=== PATIENT | female | born 1985 ===

== ENCOUNTER 2017-01-18 21:00 | Emergency (ER) | payer MEDICAID ==
[2017-01-18] MEDS ORDERED: Lactated Ringer's 1,000 ML IV ONE (21:15)
[2017-01-18 21:46] VITALS: BMI 27.6
[2017-01-18 22:07] LABS: RBC URINE 5 /hpf (0-3); URINE BACTERIA FEW (<OCC); URINE BILIRUBIN NEGATIVE (NEGATIVE); URINE BLOOD 1+ (NEGATIVE); URINE COLOR Yellow (YELLOW); URINE GLUCOSE (UA) 3+ mg/dL (Normal); URINE KETONE NEGATIVE (NEGATIVE); URINE LEUKOCYTE ESTERASE 1+ Leu/uL (Negative); URINE PROTEIN 1+ mg/dL (NEGATIVE); URINE UROBILINOGEN NORMAL mg/dL (0.2-1.0); WBC URINE 5 /hpf (0-5)
[2017-01-18] MEDS ORDERED: Betamethasone Soluspan 30 mg/5mL Inj Susp IM ONE (22:14)
[2017-01-18] MEDS ORDERED: Lactated Ringer's 1,000 ML IV SCH (22:30)
[2017-01-18] MEDS ORDERED: ceFAZolin IV 1 gm in Dextrose 1 GM/50 ML BAG IVPB ONE ×2 (23:00→23:18)
--- NOTE | 2017-01-19 01:40 | OBHP ---
Datetime: 01/18/2017 21:48 IP Adm Impression: , intrauterine ; Intact Membranes IP Adm Impression Other: Incompetent cervix; prev delivery; Cerclage in situ (Annotations: D sondra stored by CPN on behalf of user) IP Admit Plan: Observation/Evaluation; Discharge home Admit Comment, IP Provider: 31 y.o. , LMP 05/14/16, KIMBERLY 02/17/17, EGA 35w 5d c/o vaginal blee idng 2000 hours - was reclining; got up to urinate - noted after wiping. Placed a paintiliner - fille d up. Decided to come for evaluation. 2nd pantiliner with lesser bleeding. (+) AFM; (+) B-H ctx over weeks; stronger since 1800 hours, pain scale 4/10. care: Dr. Gonzalez; transferred to Dr. Refugio berrios - today was her second visit. H/O incompetent cervix with prior del x 1, and cerclage x 2. In this , cerclage placed at 14 weeks. During today's visit, had cervical exam. No other issues P Ob: x 2, both females; had cerclage in both; both delivered at [facility], Dr. Gonzalez. 2007, 37 weeks, 5lb 15 oz; 2009, 36 weeks, 6lb 5oz. 2006, Spont Ab at 23 weeks, twins, with D_C. 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 Denies STIS or abnormal Pap PMH: H/O asthma since childhood. Last attack 1 month ago. Never intubated or on steroids. PSH: D_C NKDA Meds: PNV, Folic acid - QD Soc Hx: denies tobacco, illicit drug or EtOH use. With FOB x 12 years. 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 Fam Hx. Mother alive - late 50s - HTN, DM, cardiac disease. Father - drug overdose. No kn own fam h/o cancer P.E.: as above. WD in NAD. Awake, alert, oriented to time, person and place. Pleasant and cooperat sagar Assessment: 31 yo P1112, 35w 5d, h/o incompetent cervix with cerclage in situ. Vaginal bleeding an d uterine contractions - R/O PTL . Category 1 tracing. Clinically stable. Plan: 1) IVFs 2) U/A 3) Observe 4) Possible cerclage removal 5) Possible celestone Addendum: 2016 hours - D/W Dr. Healy: remove cerclage, administer celestone. Observe for possible progression of pre term labor. Procedure Note 2305 hours After obtaining informed consent for the anticipated procdure, under sterile conditions, sterile s peculum inserted: [place] visualized at 11:00 oclock. Knot grasped with [place] clamp;stitich cut a nd removed in tact. Hemostasis assured with pressure. V.E.: 1/long/-4, medium consistency U/A: leuk esterase 1+ Assessment: P1112, 35w 5d, h/o PTL , cervical incompetence - uterine contractions with vaginal ble eding S/P cerclage removal. Early UTI. Category tracing. Clinically stable. Plan: 1) Ancef 1 gram IVPB x 1 2) Re-examine in 1 hour 3) Continue observation Addendum: 0130 hours Patient reports contractions have decreased in frequency, intensity remains at 5/10. Repeat cervical exam performed 0025 hours and 0120 hours: no cervical change, i.e., 1cm/long/ -4, mid position, medium consistency. FHR 140 bpm: (+) Accels; (-) decels. (+) moderate variability [place]: infrequent Assessment: 31 yo P1112, 35w 6d, incompetent cervix, h/o delivery, h/o cerclage with vagin al bleeidng and now S/P removal of cerclage. Serial cervical exams performed - no cervical change. Pr esumptive early UTI - S/P 1 dose IV antibiotics. Patient encouraged to continue p.o. antibiotics as p rescribed, to drink at least 1/2 body weight of water daily and 1 glass of cranberry juice. Patient t o return approximately 2200 hours 01/19/17 for second shot of celestone. Patient expressed an undersan ding and agrees. No questions offered. Category 1 tracing. Patient is clinically stable. Plan: 1) Discharge home 2) Rx: Keflex 500 mg 1 tab po TID x 7 days 3) Rx: diflucan 150 mg 1 tab po x 1 dose (take after antibiotics) 4) reviewed S/S PTL 5) Keep appointment, Sat01/23/17 - as per and discussed with Dr. Healy Pelvic Type - PN: Adequate Extremities - PN: Normal Abdomen - PN: Normal Back - PN: Normal Breast - PN: Not Done Lungs - PN: Normal Heart - PN: Normal Thyroid - PN: Normal Neurologic - PN: Not Done HEENT - PN: Normal General - PN: Normal FHR - Baseline A Provider: 135 Contraction Comments Provider: 3-4 minutes Comments, ACOG Physical Exam: Abdomen: Soft. Gravid. Non tender Perineum: no blood Spec: dark clot seen; no active bleeding. Hyperemic cervix noted; suture visualized. Nitrazine neg ative. No pooling. [place]: cervix mid to anterior, soft. Suture palpated anteriorly All other systems reviewed and as per HPI Gestation - Est Wks by US: 35w 5d EGA AdmitDate IP: 35.5 Vital Signs Provider: Reviewed IP Chief Complaint: Vaginal bleeding NICHD Variability Prov Fetus A: Moderate 6-25bpm NICHD Accel Fetus A IP Provider: 15X15 FHR Category Provider Fetus A: Category I NICHD Decel Fetus A IP Provider: None Dilatation, Provider: 1 Effacement, Provider: 40 Station, Provider: high Genitourinary Exam: Normal DTRs - PN: Not Done
== END 2017-01-19 01:32 | disposition home or self-care (01) ==
LOC: C.EROB 21:00
DX: O34.33 Maternal care for cervical incompetence, third trimester (principal); Z3A.35 35 weeks gestation of pregnancy
CPT/HCPCS: 81001; 96372; 99283; J0690; J0702; J7120

== ENCOUNTER 2017-01-19 22:28 | Emergency (ER) | payer MEDICAID ==
[2017-01-18 21:46] VITALS: BMI 27.6
[2017-01-19] MEDS ORDERED: Betamethasone Soluspan 30 mg/5mL Inj Susp IM ONE (22:42)
--- NOTE | 2017-01-19 22:58 | OBHP ---
Datetime: 01/19/2017 22:46 Admit Comment, IP Provider: 31 yo P1112, 35w 6d returns for second dose of IM Celestone. S/P cerclag e removal 01/18/17 - vaginal bleeding. h/o incompetent cervix and delivery. (+) AFM. Reports m inimal vaginal pressure and very occasional B-H contractions. See H_P from 01/18/17 Assessment: as above. Category 1 tracing/ NST reactive. Clinically stable. Plan 1) Celesstone 12 mg IM x 1 now 2) Keep appointment, Dr. Healy 01/23/17 4) Reviewed S/S PTL 5) Out of work note given: effective 01/22/17 FHR - Baseline A Provider: 130 Contraction Comments Provider: none Gestation - Est Wks by US: 35w 6d NICHD Variability Prov Fetus A: Moderate 6-25bpm NICHD Accel Fetus A IP Provider: 15X15 FHR Category Provider Fetus A: Category I NICHD Decel Fetus A IP Provider: None Dilatation, Provider: deferred Datetime: 01/18/2017 21:48 EGA AdmitDate IP: 35.5
== END 2017-01-19 23:14 | disposition home or self-care (01) ==
LOC: C.EROB 22:28
DX: O34.33 Maternal care for cervical incompetence, third trimester (principal); Z3A.35 35 weeks gestation of pregnancy
CPT/HCPCS: 99283; J0702

== ENCOUNTER 2017-02-10 19:43 | Inpatient (IN) | payer MEDICAID ==
--- NOTE | 2017-02-10 20:11 | OBADHP ---
Datetime: 02/10/2017 20:06 Admit Comment, IP Provider: at 39weeks came with c/o ctxs stated in the morning q1-4 min,11/05,n o vb, lof,+fm.pt had a cerclage removed 2weks ago. obhx 2 x , 1 sab pmh asthma med pnv all nkda psh cerclage soch den ve 3-80/-2 a/p at 39weeks in labor admit to l7d npo/ivf labs cnt oscar and efm pain management anticipate dR Henry AWARE Pelvic Type - PN: Adequate Extremities - PN: Normal Abdomen - PN: Normal Back - PN: Normal Breast - PN: Normal Lungs - PN: Normal Heart - PN: Normal Thyroid - PN: Normal Neurologic - PN: Normal HEENT - PN: Normal General - PN: Normal FHR - Baseline A Provider: 130 Contraction Comments Provider: q1-4 Comments, ACOG Physical Exam: `1GRAVID,NON TENDER EXT NO EDEMA,NO CALF TEN VE 3-80/-2 IP Hx Assessment: The History has been Reviewed and is Current Vital Signs Provider: Reviewed; Within Normal Limits IP Chief Complaint: Uterine contractions NICHD Variability Prov Fetus A: Moderate 6-25bpm NICHD Accel Fetus A IP Provider: 15X15 FHR Category Provider Fetus A: Category I Dilatation, Provider: 4 Effacement, Provider: 80 Station, Provider: -2 Genitourinary Exam: Normal DTRs - PN: Normal EGA AdmitDate IP: 39.0 IP Adm Impression: Term, intrauterine ; Active labor IP Admit Plan: Admit to unit; Initiate labor protocol Datetime: 01/19/2017 22:46 Gestation - Est Wks by US: 35w 6d NICHD Decel Fetus A IP Provider: None Datetime: 01/18/2017 21:48 IP Adm Impression Other: Incompetent cervix; prev delivery; Cerclage in situ (Annotations: D sondra stored by CPN on behalf of user)
[2017-02-10 20:15] VITALS: BMI 29.6
[2017-02-10] MEDS ORDERED: Nalbuphine 20 mg/ml Inj (1 ml) IVP PRN (20:30)
[2017-02-10] MEDS ORDERED: Lactated Ringer's 1,000 ML IV SCH (20:30)
[2017-02-10 20:42] LABS: BASO # 0.1 K/uL (0.0-0.2); BASO % 0.5 % (0.0-2.0); EOS # 0.1 K/uL (0.0-0.7); EOS % 0.9 % (0.0-4.0); HEMOGLOBIN 11.3 g/dL (11.0-16.0); LYMPH # 2.3 K/uL (1.0-4.3); LYMPH % 21.2 % (20.0-40.0); MEAN CELL VOLUME 87.5 fL (81.0-99.0); MEAN CORPUSCULAR HEMOGLOBIN 29.4 pg (27.0-31.0); MEAN CORPUSCULAR HGB CONC 33.6 g/dL (33.0-37.0); MEAN PLATELET VOLUME 10.7 fL (7.2-11.7); MONO # 0.6 K/uL (0.0-0.8); MONO % 5.7 % (0.0-10.0); NEUT # 7.8 K/uL (1.8-7.0); NEUT % 71.7 % (50.0-75.0); RBC 3.86 Mil/uL (3.80-5.20); RED CELL DISTRIBUTION WIDTH 13.8 % (11.5-14.5); WHITE BLOOD COUNT 10.8 K/uL (4.8-10.8)
[2017-02-10 20:49] LABS: SQUAMOUS EPITHIAL 18 /hpf (0-5); URINE BACTERIA MANY (<OCC); URINE BILIRUBIN NEGATIVE (NEGATIVE); URINE BLOOD NEGATIVE (NEGATIVE); URINE CLARITY Hazy (Clear); URINE COLOR Yellow (YELLOW); URINE GLUCOSE (UA) 2+ mg/dL (Normal); URINE LEUKOCYTE ESTERASE 2+ Leu/uL (Negative); URINE NITRATE NEGATIVE (NEGATIVE); URINE PROTEIN 1+ mg/dL (NEGATIVE); URINE UROBILINOGEN NORMAL mg/dL (0.2-1.0)
[2017-02-10 20:54] LABS: ALBUMIN 3.1 g/dL (3.5-5.0)
[2017-02-10 20:57] LABS: AST/SGOT 29 U/L (14-36); GFR AFRICAN-AMERICAN > 60; GFR NON-AFRICAN AMERICAN > 60
[2017-02-10 20:58] LABS: ALB/GLOB RATIO 0.9 (1.0-2.1); ALT/SGPT 22 U/L (9-52); BLOOD UREA NITROGEN 8 mg/dL (7-17)
[2017-02-10 20:59] LABS: CALCIUM 8.9 mg/dl (8.6-10.4)
[2017-02-11] MEDS ORDERED: Oxytocin 30 UNIT 30 UNITS/500 ML BAG IV PRN (05:47)
[2017-02-11] MEDS ORDERED: Oxytocin 30 UNIT 30 UNITS/500 ML BAG IV ONE (06:16)
[2017-02-11] MEDS ORDERED: Lidocaine 2% Inj (20ml) ONE (06:52)
[2017-02-11] MEDS ORDERED: Bupivacaine 0.125%/FentaNYL 200 ML EPI ONE (08:54)
--- NOTE | 2017-02-11 08:57 | OBPN ---
Datetime: 02/11/2017 08:53 Membranes, Provider: Intact Contraction Comments Provider: 1-2 FHR - Baseline A Provider: 130 Gestation - Est Wks by US: 39w 1d Presentation-Admit: Vertex IP Progress Note Comment: Patient received in LDR#2; c/o pain of contraactions pain scale 7/10 V.E.: as above. Pitocin at 8 mU Assessment: P2, 39w 1d, protracted active phase of labor on pitocin. Patient agrees to epidural fo r pain control. Category 1 tracing. Clinically stble Plan: 1) Epidural 2) Anticipate vaginal delivery - Dr. Healy is aware Vital Signs Provider: Reviewed; Within Normal Limits NICHD Accel Fetus A IP Provider: 15X15 FHR Category Provider Fetus A: Category I NICHD Variability Prov Fetus A: Moderate 6-25bpm Dilatation, Provider: 6-7 Effacement, Provider: 70 Station, Provider: -3 NICHD Decel Fetus A IP Provider: None
--- NOTE | 2017-02-11 09:38 | OBPN ---
Datetime: 02/11/2017 09:32 IP Progress Impression: Normal progression of labor; Reassuring heart rate; Reactive non-stres s test IP Procedures: Artificial ROM; Sterile Vag Exam IP Progress Plan: Continue present management; Augmentation Membranes, Provider: Ruptured Contraction Comments Provider: q 3-4 FHR - Baseline A Provider: 120 Gestation - Est Wks by US: 39.0 Presentation-Admit: Vertex IP Progress Note Comment: IUP at 39wks in labor. Continue monitoring the progress of labor. NICHD Accel Fetus A IP Provider: 15X15 FHR Category Provider Fetus A: Category II NICHD Variability Prov Fetus A: Moderate 6-25bpm Dilatation, Provider: 6 Effacement, Provider: 80 Station, Provider: -2 NICHD Decel Fetus A IP Provider: None
--- NOTE | 2017-02-11 10:46 | OBDS ---
MATERNAL INFORMATION Provider Comments: Uncomplicated spontaneous vaginal delivery of a viable male infant, BW 7Ibs 1 oz , 9 and 9, over an intact perineum. LABOR SUMMARY EDC: 02/17/2017 00:00 No. Babies in Womb: 1 LABOR INFORMATION Group B Beta Strep: Negative MEMBRANES Membranes Rupture Method: Artificial Rupture of Membranes: 02/11/2017 09:29 Length of Rupture (hrs): 1.10 Amniotic Fluid Color: Clear Amniotic Fluid Amount: Moderate Amniotic Fluid Odor: Normal STAGES OF LABOR Stage 3 hrs: 0 Stage 3 min: 6 VAGINAL DELIVERY Episiotomy: None Laceration Extension: N/A Laceration Type: None Initial Vag Sponge Count: 10 Final Vag Sponge Count: 10 Sponge Count Correct: Yes Sharps Count Correct: N/A BABY A INFORMATION Delivery Date/Time: 02/11/2017 10:35 Method of Delivery: Vaginal Born in Route : No Forceps: N/A Vacuum Extraction: N/A Shoulder Dystocia : No SHOULDER DYSTOCIA BABY A Infant Delivery Date/Time: 02/11/2017 10:35 PRESENTATION/POSITION BABY A Presentation: Cephalic Cephalic Presentation: Vertex Vertex Position: Left Occipital Anterior Breech Presentation: N/A PLACENTA INFORMATION BABY A Placenta Delivery Time : 02/11/2017 10:41 Placenta Method of Delivery: Spontaneous Placenta Status: Delivered SCORES BABY A Heart Rate 1 min: >100 bpm Resp Effort 1 min: Good Cry Reflex Irritability 1 min: Cough or Sneeze or Pulls Away Muscle Tone 1 min: Active Motion Color 1 min: Body [place], Extremities Blue SCORE 1 MIN: 9 Heart Rate 5 min: >100 bpm Resp Effort 5 min: Good Cry Reflex Irritability 5 min: Cough or Sneeze or Pulls Away Muscle Tone 5 min: Active Motion Color 5 min: Body [place], Extremities Blue SCORE 5 MIN: 9 INFANT INFORMATION BABY A Gestational Age at Delivery: 39.0 Gestational Status: Term Infant Outcome : Liveborn Condition : Stable Infant Sex: Male IDENTIFICATION/MEDS BABY A ID Band Number: [id number] Sensor Number: [id number] WEIGHT/LENGTH BABY A Infant Birthweight (gms): 3210 Weight (lb): 7 Weight (oz): 1 Infant Length Inches: 19.00 Length cms: 48.3 CORD INFORMATION BABY A No. Cord Vessels: 3 Nuchal Cord : N/A Cord Blood Taken: Yes Infant Suction: Mouth; Nose ASSESSMENT BABY A Infant Complications: None Physical Findings at Delivery: Within Normal Limits Infant Respirations: Appears Normal Instructional Technology Coach/ALS Called : No Care By: dr faria Transferred To: Remains with Mother
[2017-02-12 09:18] LABS: BASO % 0.4 % (0.0-2.0); EOS # 0.2 K/uL (0.0-0.7); EOS % 1.8 % (0.0-4.0); HEMOGLOBIN 10.3 g/dL (11.0-16.0); LYMPH # 1.8 K/uL (1.0-4.3); MEAN CORPUSCULAR HGB CONC 32.4 g/dL (33.0-37.0); MEAN PLATELET VOLUME 10.8 fL (7.2-11.7); MONO # 0.5 K/uL (0.0-0.8); MONO % 4.4 % (0.0-10.0); NEUT # 8.5 K/uL (1.8-7.0); NEUT % 77.4 % (50.0-75.0); RBC 3.55 Mil/uL (3.80-5.20); RED CELL DISTRIBUTION WIDTH 13.9 % (11.5-14.5)
[2017-02-12 09:23] LABS: MEAN CELL VOLUME 89.5 fL (81.0-99.0)
--- NOTE | 2017-02-12 13:13 | OBPPN ---
Datetime: 02/12/2017 12:55 PP Pain Prov: Within normal limits PP Nausea Prov: Denies PP Flatus Prov: Yes PP Breasts Prov: Normal PP Heart Prov: Normal PP Lungs Prov: Normal PP Abdomen/Uterus Prov: Normal PP Lochia Prov: Normal PP Vulva/Perineum Prov: Normal PP CVA Tenderness Prov: Normal PP Extremities Prov: Normal PP C/S Incision Prov: Not Applicable PP Progress Prov: Normal PP Comments Phys Exam Prov: GEN NAD AAO x 3 RESP: CTAB?l CVS: RRR, +S1/S2 BREAST: non tender, non enorgored ABVD; soft, nt/nd Fundus: firm, blweo level of f2nrgltb EXT; no calf tendenrss bl PP Impression Prov: Normal progression PP Plan Prov: Continue present management PP Progress Note Prov: pt seen and examiend and reports pain controlled, dneie any fevers,c hills, a nsue,v omiting, cp, sob pt ambuating, voidng, tolertin rreuglar det, is breat feeding vss pe see above a/p s/p ppd # 1 doign well 1. pain amnagnet 2. regula rdiet 3. encaurge ambuatin/ breast feeding 4. f/u am labs Vital Signs Provider PP: Reviewed; Within Normal Limits
--- NOTE | 2017-02-13 07:45 | CP.PCM.PN ---
Subjective - Date & Time of Evaluation Date of Evaluation: 02/13/17 Time of Evaluation: 07:35 - Subjective Subjective: Patient seen and examined at bedside. Patient is doing well, pain is controlled. Per nursing, no acute events overnight. Patient is ambulating and tolerating diet. Lochia is minimal. Patient is passing flatus, no BM. Urinating without difficulty. Patient is . Denies headaches, dizziness, CP, SOB, abdominal pain, urinary symptoms. VS: T 97.9 HR 68 BP 125/84 RR 20 Gen: AAOx3, NAD CV: RRR Pulm:CTA B/L Abd: soft, nontender, fundus firm below umbilicus Ext: No clubbing, cyanosis, edema; no calf tenderness Labs: Hgb 11.3 --> 10.3 Rh positive Objective - Vital Signs/Intake and Output Vital Signs (last 24 hours): Temp Pulse Resp BP Pulse Ox 97.9 F 68 20 125/84 97 02/13/17 00:00 02/13/17 00:00 02/13/17 00:00 02/13/17 00:00 02/12/17 16:00 - Medications Medications: Current Medications Acetaminophen (Tylenol 325mg Tab) 650 mg PO Q6 PRN PRN Reason: Pain, Mild (1-3) Last Admin: 02/11/17 18:01 Dose: 650 mg Oxytocin (Pitocin) 30 units in 500 mls @ 2 mls/hr IV .Q24H PRN; Protocol; 0.002 UNIT/MIN PRN Reason: Labor Last Admin: 02/11/17 06:20 Dose: 2 mls/hr Ibuprofen (Motrin Tab) 600 mg PO Q6 PRN PRN Reason: Pain, moderate (4-7) Last Admin: 02/12/17 23:33 Dose: 600 mg Nalbuphine HCl (Nubain) 10 mg IVP DAILY@ONCE PRN PRN Reason: Pain, severe (8-10) - Labs Labs: 02/12/17 09:12 02/10/17 20:30 - Constitutional Appears: Well, No Acute Distress - Head Exam Head Exam: ATRAUMATIC, NORMAL INSPECTION - Eye Exam Eye Exam: EOMI, Normal appearance Pupil Exam: NORMAL ACCOMODATION - ENT Exam ENT Exam: Mucous Membranes Moist - Neck Exam Neck Exam: Full ROM, Normal Inspection - Respiratory Exam Respiratory Exam: Clear to Ausculation Bilateral, NORMAL BREATHING PATTERN - Cardiovascular Exam Cardiovascular Exam: REGULAR RHYTHM, +S1, +S2 - GI/Abdominal Exam GI & Abdominal Exam: Soft, Normal Bowel Sounds Additional comments: Fundus firm below umbilicus - Extremities Exam Extremities Exam: Full ROM, Normal Inspection. absent: Calf Tenderness - Back Exam Back Exam: NORMAL INSPECTION - Neurological Exam Neurological Exam: Alert, Awake, Oriented x3 - Psychiatric Exam Psychiatric exam: Normal Affect, Normal Mood - Skin Skin Exam: Normal Color, Warm Assessment and Plan (1) Normal spontaneous vaginal delivery Status: Acute - Assessment and Plan (Free Text) Assessment: 31 yo at 39+ weeks s/p PPD#2 1. Stable, afebrile 2. Pain control - Tylenol and Motrin prn 3. Encourage ambulation and hydration 4. Male - circ done 5. Anticipate D/C home today - pelvic rest x 6 weeks, Tylenol and motrin prn pain, f/u with Dr Healy in 6 weeks 6. Plan d/w attending
[2017-02-13 10:49] VITALS: BP 121/81; PULSE 63; RESP 18; TEMP 98.6; O2SAT 99
== END 2017-02-13 11:39 | disposition home or self-care (01) | DRG 372 ==
LOC: C.EROB 19:43 → C.4D 20:07 → C.4M 02-11 13:16
PROVIDERS: ADMIT Obstetrics & Gynecology; ATTEND Obstetrics & Gynecology
PROC: 10E0XZZ Delivery of Products of Conception, External Approach (ICD-10-PCS; principal; 2017-02-11)
PROC: 10907ZC Drainage of Amniotic Fluid, Therapeutic from Products of Conception, Via Natural or Artificial Opening (ICD-10-PCS; 2017-02-11)
DX: O34.33 Maternal care for cervical incompetence, third trimester (principal); J45.909 Unspecified asthma, uncomplicated; O26.893 Other specified pregnancy related conditions, third trimester; Z3A.39 39 weeks gestation of pregnancy; Z37.0 Single live birth

== ENCOUNTER 2017-04-11 08:55 | Day surgery (SDC) | payer MEDICAID ==
--- NOTE | 2017-04-10 23:43 | CP.SDSHP ---
Same Day Surgery H & P - History Proposed Procedure: Laparoscopic Bilateral Tubal Cauterization Pre-Op Diagnosis: Multiparity Requesting for Permanent Surgical Sterilization - Previous Medical/Surgical History Previous Surgical History: Cerclage X2 - Allergies Allergies: Allergies No Known Allergies Allergy (Verified 08/05/15 11:57) - Physical Exam General Appearance: Well Mental Status: Alert & Oriented x3 Neuro: WNL Heart: WNL Lungs: WNL GI: WNL - {Optional Preform as Required} Abdomen: WNL Integument: WNL PLUMBER PIPE FITTING: WNL - Impression Impression: Multiparity Requesting Permanent Surgical Sterilization. Pt. Evaluated Today:Candidate for Anesthesia & Procedure: Yes - Date & Time Date: 04/11/17 Time: 07:30 Short Stay Discharge - Short Stay Discharge Admitting Diagnosis/Reason for Visit: STERILIZATION Disposition: HOME/ ROUTINE
[2017-04-11] MEDS ORDERED: Propofol 10 mg/ml Inj (20 ML) ONE (12:45)
[2017-04-11] MEDS ORDERED: Midazolam 2 MG/2 ML VIAL ONE (12:45)
[2017-04-11] MEDS ORDERED: Lactated Ringer's 1,000 ML IV ONE ×2 (12:45→13:52)
[2017-04-11] MEDS ORDERED: cefOXitin IV 2 gm in Dextrose 2 GM/50 ML BAG IVPB ONE (12:46)
[2017-04-11] MEDS ORDERED: HYDROmorphone 0.5 mg/0.5 ml ISec IVP PRN (14:05)
--- NOTE | 2017-04-11 14:37 | CP.SDSHP ---
Same Day Surgery H & P - History Proposed Procedure: Laparascopic B/L tubal Cauterization Pre-Op Diagnosis: Multiparity Requesting for permanent surgical sterilization. - Allergies Allergies: Allergies No Known Allergies Allergy (Verified 08/05/15 11:57) - Physical Exam General Appearance: well Vital Signs: Vital Signs 04/11/17 04/11/17 04/11/17 09:24 09:33 14:02 Temperature 97.6 F 97.6 F 97.2 F L Pulse Rate 60 60 73 Respiratory 20 20 13 Rate Blood Pressure 125/77 125/77 132/77 O2 Sat by Pulse 97 97 100 Oximetry 04/11/17 14:15 Temperature Pulse Rate 71 Respiratory 16 Rate Blood Pressure 130/77 O2 Sat by Pulse 100 Oximetry Mental Status: Alert & Oriented x3 Neuro: WNL Heart: WNL Lungs: WNL GI: WNL - {Optional Preform as Required} Breast: WNL Abdomen: WNL Rectal: WNL Integument: WNL CIVIL PREPAREDNESS TRAINING OFFICER: WNL - Impression Impression: For Permanent Surgical sterilization - Date & Time Date: 04/11/17 Time: 07:15 Short Stay Discharge - Short Stay Discharge Admitting Diagnosis/Reason for Visit: STERILIZATION Disposition: HOME/ ROUTINE
--- NOTE | 2017-04-11 14:52 | PCM.SURG1 ---
Surgeon's Initial Post Op Note - Surgeon's Notes Surgeon: Dr Healy Biogeographer: Dr Parker Type of Anesthesia: General Endo Anesthesia Administered By: DANIEL Larios, Supervised by Dr Lyon Pre-Operative Diagnosis: Multiparity requesting for permanent surgical sterilization Operative Findings: Normal sized anteverted uterus with normal bilateral fallopian Tubes and ovaries. IVFluids 500mls. Urine output- 50mls. EBL- 5mls Post-Operative Diagnosis: Same as preop diagnosis Operation Performed: Laparascopic Bilateral Tubal Cauterization Specimen/Specimens Removed: None Estimated Blood Loss: EBL {In ML}: 5 Drains Used: No Drains Post-Op Condition: Good Date of Surgery/Procedure: 04/11/17 Time of Surgery/Procedure: 14:54
[2017-04-11 15:41] VITALS: RESP 16
[2017-04-11 16:26] VITALS: BP 106/72; PULSE 66; TEMP 97.9; O2SAT 100
--- NOTE | 2017-04-12 21:01 | OP ---
PROCEDURE DATE: PREOPERATIVE DIAGNOSIS: Multiparity, requesting for permanent surgical sterilization. POSTOPERATIVE DIAGNOSIS: Multiparity, requesting for permanent surgical sterilization. PROCEDURE: Laparoscopic bilateral tubal cauterization, performed on 04/11/2017. SURGEON: Dr. Healy. NUTRITION CONSULTANT: Dr. Parker. Speeder Hand to this procedure was needed for exposure of tissues and help in the conduct of the surgery. The reproductive healthcare assistant remained with the surgery throughout its entire length. TYPE OF ANESTHESIA: General endotracheal. ANESTHESIA ADMINISTERED BY: Ric SANCHEZ, supervised by Dr. Lyon. OPERATIVE FINDINGS: Normal sized anteverted uterus with normal bilateral fallopian tubes and ovaries. IV FLUID INTAKE: 500 mL. ESTIMATED BLOOD LOSS: About 5-10 mL. URINE OUTPUT: 50 mL. COMPLICATIONS: There were no complications. DESCRIPTION OF PROCEDURE: After obtaining informed consent, the patient was sent to the OR with IV running. The patient was placed in the supine position on the OR table and after adequate general anesthesia was put in a dorsal lithotomy position. The patient was then prepped and draped in the usual sterile fashion. The posterior vaginal wall was depressed using a weighted speculum and the anterior wall elevated with an L-shaped retractor to expose the cervix. The anterior lip of the cervix was held with a single-tooth tenaculum. The cervical canal after found in the uterus was dilated with Hegar's dilator to about 8 mm dilatation. The uterus was sounded to a depth of 7 cm. The uterine manipulator was inserted into the uterine cavity and secured in place using the air balloon attached to it. While this secured manipulator has been placed, the instruments in vagina were taken off and attention was then turned to the anterior abdominal wall where a 5 mm incision was made into the mid portion of the umbilicus. A Veress needle was introduced at this point and the abdomen was filled with carbon dioxide gas with pressure of about 50 mmHg. A 5 mm laparoscopic trocar and cannula were inserted into this port and laparoscope introducing to the abdominal cavity, the above findings were noted. Another 5 mm incision was made in the suprapubic area and another trocar and cannula was introduced. A 5 mm LigaSure device was inserted into this port and the right fallopian tube was grasped, cauterized for above 4-5 cm length of the right fallopian tube. The same procedure was performed on the left fallopian tube, grasping and cauterizing for about 5 cm length above it. Pictures were taken before and after the procedure and one of the procedure has been completed where LigaSure device and the laparoscope were removed from the abdominal cavity and the carbon dioxide gas was let out until its fully taken out of the abdomen. The trocar and cannulas were then taken from GI port and the 5 cm incisions on both sides were closed using #4-0 Biosyn. All counts of instruments, laparotomy pads and gauze used were correct x3. The patient was sent to the recovery room awake and in stable condition. Michael Healy MD
== END 2017-04-11 16:20 | disposition home or self-care (01) ==
LOC: C.SDS 08:55
PROVIDERS: ATTEND Obstetrics & Gynecology
DX: Z30.2 Encounter for sterilization (principal)
CPT/HCPCS: 58670; J0694; J1100; J1885; J2250; J2405; J2704; J3010; J7120